=== PATIENT | male | born 1970 | race Caucasian/White ===

== ENCOUNTER 2025-02-23 07:58 | Day surgery (SDC) | payer OTHER, SELFPAY ==
[2025-02-10 09:22] VITALS: BMI 26.1
[2025-02-10 09:59] LABS: Hematocrit 41.6 % (39.0-52.0); Hemoglobin 14.2 g/dL (13.0-18.0); Mean Corp Hgb Conc. 34.1 g/dL (33.0-37.0); Mean Corpuscular Volume 86.8 fL (80.0-94.0); Nucleated Red Blood Cells % 0 % (-); Platelet Count 173 10^3/uL (130-400); Red Cell Dist. Width 12.7 % (11.5-14.5)
[2025-02-10 10:06] LABS: INR 1.31; PT 16.5 Sec (11.4-14.6)
[2025-02-10 10:23] LABS: ALT (SGPT) 17 U/L (0-50); AST (SGOT) 19 U/L (17-59); Albumin 4.4 g/dl (3.5-5.0); Alkaline Phosphatase 51 U/L (38-126); Blood Urea Nitrogen 21 mg/dl (9-20); Calcium 9.1 mg/dl (8.4-10.2); Carbon Dioxide 26 mmol/L (22-30); Chloride 106 mmol/L (98-107); Estimated Creatinine Clearance 79 ml/min; Glucose 101 mg/dl (70-99); Magnesium 2.1 mg/dl (1.6-2.3); Potassium 4.1 mmol/L (3.5-5.1); Sodium 138 mmol/L (135-145); Total Protein 7.2 g/dl (6.3-8.2); eGFR > 60.00
[2025-02-23] VITALS (12 sets, daily range): BP systolic 112–147; BP diastolic 67–93; BMI 24.4
[2025-02-23] MEDS: TYLENOL 1000 MG PO (09:20)
[2025-02-23 10:35] LABS: ACT-LR - POC 285 Seconds (116-155)
[2025-02-23 10:49] LABS: ACT-LR - POC 265 Seconds (116-155)
--- NOTE | 2025-02-23 10:57 | ITS.CL.ABL ---
[facility] - Ablation
Ablation
Procedure Report:
ELECTROPHYSIOLOGY ABLATION STUDY
DATE:: February 23, 2025�����������������������������REFERRING: Dr. Salvatore Youngblood
INDICATION: History of persistent supraventricular tachycardia in the form of atrial fibrillation.��Prior pulmonary vein isolation in 2018 for persistent atrial fibrillation and did clinically well for approximately 7 years and then recurred with
atrial fibrillation. Presents today for repeat pulmonary isolation with pulsed field ablation
HISTORY: See H and P.� As above
ANTIARRHYTHMIC DRUG: Magnesium only
PRE-PROCEDURE DEVON: No intracardiac thrombus on intracardiac ultrasound
PRESENTING RHYTHM: Sinus rhythm on presentation
'TIME-OUT':��called and confirmed.
SEDATION/ANESTHESIA:��provided via the anesthesia department using general anesthesia (LMA).
INTRAVENOUS/ARTERIAL ACCESS:
Right femoral venous -8Fr
Left femoral venous - 8 Fr, 6 Fr
[id number] sutures applied at 10:55 AM to bilateral venous access sites.
Ultrasound guidance for bilateral femoral vein access was utilized by me to obtain access with demonstration of normal anatomy
He is diagnosed with factor V Leiden in his history.
PROCEDURE:
1.��A decapolar CS catheter was placed within the CS for mapping and pacing.��This was also used as the reference catheter for the 3-D map.
2. The intracardiac ultrasound catheter was positioned in the RA to identify the FO for targeting of transseptal puncture, assist��in identification of the pulmonary vein ostia, monitoring pre and post ablation pulmonary vein flow velocities,
monitoring for 'bubble' formation during RF application as a sign of thermal injury,��and to monitor for pericardial effusion during mapping and ablation procedure.���Left atrial size, LV ejection fraction, and pulmonary vein flows were monitored
pre and post ablation procedure. The other valves were inspected and found to be free of significant regurgitation or stenosis.
3.��Half of the calculated heparin bolus was administered prior to the first transeptal puncture.��Transseptal puncture was performed to diagnose RA and LA pressure so that safety of LA mapping and ablation could be further assessed, and to access
the left atrium and pulmonary veins for mapping and ablation.��This entailed advancing an 8 Fr SL-1 sheath with dilator into the superior vena cava and withdrawing both (monitoring intracardiac ultrasound, fluoroscopy and tip pressure) with the tip
oriented toward the atrial septum.��The fossa ovalis was engaged (indicated by sudden displacement of the sheath tip as well as tenting of the fossa seen on intracardiac ultrasound).��Left atrial access required a pass with the [place]rough needle
extended.��Left atrial catheter position was confirmed by pressure monitoring (RA mean pressure 4 mm Hg and LA mean presure 12 mm Hg), LA saturation (99%),��as well as fluoroscopy.��The sheath was advanced over the dilator and positioned in the left
atrium.��The remainder of the calculated heparin bolus was administered and heparin was
infused to maintain ACT at 300 -350 seconds throughout the case.
4.��RA pacing was performed via the proximal decapolar poles and LA pacing was performed via the distal decapolr poles.
5. A quadrapolar catheter was first positioned at the His position for His Bundle recording which was tagged via the 3-D Navex sytem, and then passed to the RVA for RV pacing and recording.
6. The Penta spline and grid catheter were placed in each of the LIPV, LSPV, RSPV and the RIPV.��
7.��Next, a 3-D map was created using Navex.���A 3-D reconstructed CT image was compared to the 3-D Navex map to assist in anatomic interpretation, mapping and ablation.��The CT image and the NavX image were fused.
8. A total of 46 lesions were given to the left atrium and the pulmonary veins. The pulmonary veins were isolated anteriorly at baseline. There was ingrowth and reconnection outside the antrum at the septal raj of the right pulmonary veins.
The left superior and left inferior pulmonary veins were engaged and basket poses were given to the roof outside the left superior pulmonary vein as well as the raj from each left vein. All of pose and basket pose to the right superior pulmonary
vein to extend the lesion set around the right superior pulmonary vein. Fluoroscopy post was then utilized at the roof posterior wall and floor of the left atrium. Entrance next block was demonstrated in all 4 pulmonary veins as well as the roof
posterior wall and floor of the left atrium.
Postablation EP study demonstrated no other inducible tachyarrhythmia or inducible atrial fibrillation with burst pacing down to right and left atrial refractoriness as well as single extrastimuli from the right atrium.
Normal sinus node and AV carine function noted.
9. 30 mg of protamine was given for an ACT of 265 seconds.
TOTAL FLOURO TIME: 12.1 minutes 153 mGy
TOTAL RF DURATION: 0 minutes
REVERSAL OF HEPARIN: 30 mg of protamine, slow IV administration
COMPLICATIONS:
None
Intracardiac US shows no pericardial effusion post ablation.
SUMMARY:��
Complex left atrial mapping and ablation.
Isolation of the right superior pulmonary vein as well as the roof posterior wall and floor of the left atrium as above. Noninducible for other tachycardia with the post procedure.
RECOMMENDATIONS:
1. Ambulate in 4 hours
2. Resume anticoagulation at a minimum of 3 months but given the patient's factor V Leiden I would prefer lifelong�will defer to PCP and hematology
3.��Continue magnesium as needed
4.��Consider same-day discharge
Copy to: Dr. Salvatore Youngblood
--- NOTE | 2025-02-23 11:05 | W.DS.TRANS ---
DC Summary - Director Data Processing
-
Discharge Instructions:
Discharge Diagnosis/Procedures Atrial fibrillation post ablation
Diet Low Sodium
Driving Restrictions No driving for 24 hours
Instructions:
Stand-Alone Forms: DC Instructions- Cath/EP Lab
Changes to Home Medications: No
Discharge Medications:
DC Medications w/original date entered in [employer]
rivaroxaban 20 mg tablet (Xarelto) 20 mg PO QPM 11/23/18
magnesium citrate 1 unit PO HS 02/09/25
Home Medication Changes
Pending Results: No (Nothing pending)
--- NOTE | 2025-02-23 16:00 | PTCARENOTE ---
MANUAL PRESSURE HELD [address] COVARRUBIAS AWARE. SITE STILL OOZING. DR COVARRUBIAS TO INJECT LIDO WITH EPI.
--- NOTE | 2025-02-23 16:11 | W.PN.UPDATE ---
Update Note
Progress Note Update
The patient had spontaneous bleeding from the right femoral access site. 30 minutes of pressure was held. Lidocaine with epi was injected at the site. Will recheck on the patient in 30 minutes if he has further bleeding we will consider a stitch
which we could cut tomorrow in the outpatient lab or on Thursday. With ongoing oozing or bleeding we could consider admission to the hospital.
--- NOTE | 2025-02-23 16:24 | PTCARENOTE ---
DR COVARRUBIAS INJECTED SITE WITH LIDO AND EPI. MANUAL PRESSURE HELD FOR AN ADDITIONAL 10 MIN. SITE WITH SMALL OOZE. STERILE 4X4 AND TEGADERM APPLIED. PT TO AMBULATE AT [address] COVARRUBIAS.
== END 2025-02-23 17:25 | disposition home or self-care (01) ==
LOC: CATH 07:58
PROVIDERS: ATTENDING PHYSICIAN Internal Medicine Cardiovascular Disease; FAMILY PHYSICIAN Family Medicine
DX: I48.19 Other persistent atrial fibrillation (principal); Z79.01 Long term (current) use of anticoagulants; D68.51 Activated protein C resistance; Z86.718 Personal history of other venous thrombosis and embolism; Z87.891 Personal history of nicotine dependence; I87.2 Venous insufficiency (chronic) (peripheral)
CPT/HCPCS: C1732; C1894; C1730; C1769; C1892; C1759; 36415; 80053; 83735; 85025; 85347; 85610; 86850; 86900; 86901; 93005; 93656; 93657; C1733; C1766